=== PATIENT | male | born 1935 | race Caucasian/White ===

== ENCOUNTER 2022-05-08 10:55 | Emergency (ER) | payer MEDICARE, SELFPAY ==
[2022-05-08 12:26] VITALS: BP 147/64; PULSE 75; RESP 18; TEMP 36.2; O2SAT 96
--- NOTE | 2022-05-08 13:44 | ED.GENADULT ---
HPI - General Adult General Chief complaint: Upper Respiratory Infection Stated complaint: sore throat Time Seen by Provider: 05/08/22 13:44 Source: patient Mode of arrival: ambulatory Limitations: no limitations History of Present Illness HPI narrative: 86-year-old male patient presents to the [facility] with complaints of sore throat and cough. Patient states he has had a cough for the past month and a sore throat just started about 3 days ago. Patient states he has also noticed he has had a runny nose and at night when he lays flat he gets a lot of congestion. Patient states he is vaccinated against influenza and COVID. Patient states he has been taking [id number] Robitussin and Sudafed for his symptoms. Related Data Home Medications Medication Instructions Recorded Confirmed lovastatin 20 mg tablet 20 mg DAILY 05/08/22 05/08/22 propranolol 20 mg tablet 20 mg BID 05/08/22 05/08/22 pseudoephedrine HCl 120 mg 120 mg PO DAILY 05/08/22 05/08/22 tablet,extended release (Sudafed 12 Hour) terazosin 10 mg capsule 10 mg HS 05/08/22 05/08/22 Allergies Allergy/AdvReac Type Severity Reaction Status Date / Time No Known Allergies Allergy Verified 05/08/22 12:45 Review of Systems Review of Systems: CONSTITUTIONAL: Denies fever, chills, or sweats. EYES: Denies visual changes, redness, or discharge. ENT: Positive rhinorrhea, congestion, sore throat, denies otalgia. CARDIOVASCULAR: Denies chest pain, palpitations, or edema. RESPIRATORY: Positive cough, denies dyspnea. GASTROINTESTINAL: Denies abdominal pain, nausea, vomiting, or diarrhea. GENITOURINARY: Denies dysuria or hematuria. SKIN: Denies rash or itching. MUSCULOSKELETAL: Denies back pain, joint pain, or myalgia. NEUROLOGIC: Denies headache, numbness, or weakness. PSYCHIATRIC: Denies anxiety or depression. PMFSH Past Medical History Medical History Enlarged prostate ESRF (end stage renal failure) Hypertension Comments At the time of my signature I agree with nursing past medical history, surgical, social, and family history. There is no relevant family history pertinent to the presenting complaint. Exam Narrative: GENERAL: Well-appearing, well-nourished, and in no acute distress. HEAD: Normocephalic, atraumatic. EYES: PERRLA and EOMI. ENT: Nares with erythema and edema noted to the right near, no rhinorrhea or epistaxis. Mucous membranes moist. Posterior oropharynx with some postnasal drip and slight erythema no tonsillar enlargement, no exudates or lesions present. Bilateral TMs are clear no erythema from Vice the canal. NECK: Supple. No lymphadenopathy CHEST: Clear to auscultation. No respiratory distress. Patient will talk in clear complete sentences. HEART: Regular rate and rhythm. No murmur heard. Normal peripheral pulses. ABDOMEN: Soft, nontender, nondistended, normal active bowel sounds. EXTREMITIES: Normal range of motion. No edema. SKIN: Warm, dry, no rash. NEURO: No focal deficits. Alert and oriented x3. Course Course Level of Care: Express Care Visit Vital Signs Vital signs: Vital Signs Temperature 36.2 C L 05/08/22 12:26 Pulse Rate 75 05/08/22 12:26 Respiratory Rate 18 05/08/22 12:26 Blood Pressure 147/64 H 05/08/22 12:26 Pulse Oximetry 96 05/08/22 12:26 Oxygen Delivery Room Air 05/08/22 12:26 Temperature 36.2 C L 05/08/22 12:26 Pulse Rate 75 05/08/22 12:26 Respiratory Rate 18 05/08/22 12:26 Blood Pressure 147/64 H 05/08/22 12:26 Pulse Oximetry 96 05/08/22 12:26 Oxygen Delivery Room Air 05/08/22 12:26 Vital signs reviewed. The patient has been informed that they may have pre-hypertension or Hypertension based on a BP reading in the department. I recommend that the patient call the primary care provider listed on their discharge instructions or a physician of their choice this week to arrange follow up for further evaluation of poss
== END 2022-05-08 14:05 | disposition home or self-care (01) ==
PROVIDERS: Emergency Provider Nurse Practitioner Family
DX: J20.8 Acute bronchitis due to other specified organisms (principal); J02.9 Acute pharyngitis, unspecified; N40.0 Benign prostatic hyperplasia without lower urinary tract symptoms; I12.0 Hypertensive chronic kidney disease with stage 5 chronic kidney disease or end stage renal disease; N18.6 End stage renal disease
CPT/HCPCS: 87880; 99213; G0463